=== PATIENT | male | born 1945 | race Caucasian/White ===

== ENCOUNTER 2025-01-24 09:00 | Day surgery (SDC) | payer OTHER ==
[2025-01-23 10:55] LABS: BASO % 0.3 % (0.1-1.2); EOS # 0.01 (0.04-0.54); EOS % 0.1 % (0.7-7.0); LYMPH # 2.31 (1.18-3.74); LYMPH % 32.0 % (19.3-53.1); MEAN PLATELET VOLUME 10.50 fl (9.4-12.4); MONO # 0.46 (0.24-0.82); MONO % 6.4 % (4.7-12.5); NEUT # 4.40 (1.56-6.13); NEUT % 60.9 % (34.0-71.1); RED CELL DISTRIBUTION WIDTH 12.8 % (11.6-14.4)
[2025-01-23 11:06] VITALS: BP 150/100
[2025-01-23 11:07] VITALS: BP 150/95
[2025-01-23 11:21] LABS: INR 1.04
[2025-01-23 11:26] LABS: URINE APPEARANCE Clear; URINE BILIRRUBIN Negative (NEGATIVE); URINE BLOOD Negative; URINE COLOR Yellow; URINE KETONE Trace (NEGATIVE); URINE LEUKOCYTE Negative; URINE NITRATE Negative; URINE UROBILINOGEN 1.0 E.U./dl
[2025-01-23 11:29] LABS: URINE BACTERIA 9.5 uL (0.0-1933); URINE EPITHELIAL CELLS 4.6 uL (0.0-38.8); URINE RBC 6.5 uL (0.0-20.8); URINE WBC 2.7 uL (0.0-23.2)
[2025-01-23 11:29] LABS: ALT/SGPT 23.0 U/L (12-78); AST/SGOT 16.0 U/L (15-37); BILIRUBIN TOTAL 0.61 mg/dL (0.3-1.2); BUN CREA RATIO 19.0 (7.0-25.0); CREATININE SERUM 0.99 mg/dL (0.70-1.30); GFR 72.37; GLOBULINA 4.1 G/DL (2.4-3.5); OSMOLALITY SERUM 291.0 MOSM/KG (275-295)
[2025-01-23 11:30] LABS: COL EPI 96 SECONDS (82-175); GLUCOSE FASTING 236.0 mg/dL (65-100)
[2025-01-23 11:44] LABS: URINE CAST 0.73 uL (0.0-1.40); URINE GLUCOSE 100 MG/DL (NEGATIVE); URINE PROTEIN 100 (NEGATIVE)
[2025-01-23 11:45] LABS: URINE CRYSTALS MANY /HPF
[~2025-01-24] VITALS: Ht 165.1 cm; Wt 68.0 kg
[~2025-01-24 09:00] MED LIST: AMLODIPINE-OLM1 EACH PO; ENALAPRIL MALEA10 MG PO
[2025-01-24] MEDS ORDERED: CEFAZOLIN SODIUM 1,000 MG VIAL ONE (09:25)
[2025-01-24] MEDS ORDERED: BUPIVACAINE HCL/MPF 0.5% 30ML VIAL ONE (10:36)
== END 2025-01-24 13:30 | disposition home or self-care (01) ==
LOC: CIR.AMB 09:00
PROVIDERS: ATTEND Orthopaedic Surgery
DX: S52.021A Displaced fracture of olecranon process without intraarticular extension of right ulna, initial encounter for closed fracture (principal); M70.21 Olecranon bursitis, right elbow
CPT/HCPCS: 24685; L8699

== ENCOUNTER 2025-01-24 22:04 | Inpatient (IN) | payer OTHER ==
[~2025-01-24] VITALS: Ht 162.6 cm; Wt 65.8 kg
--- NOTE | 2025-01-24 22:35 | NUR ---
PTE ALERTA,ESTABLE Y ORIENTADO.VALERIANO REFIERE QUE SUFRIO ASHLEY CAIDA HOY.VALERIANO TAMBIEN LO OPERARON HOY DEL CODO DERECHO POR EL
[2025-01-24] MEDS ORDERED: KETOROLAC TROMETHAMINE 60 MG VIAL IM STA (23:19)
[2025-01-24] MEDS ORDERED: KETOROLAC TROMETHAMINE 60 MG VIAL IM ONE (23:26)
--- NOTE | 2025-01-24 23:34 | NUR ---
PTE EVALUADO POR EL TIEN CHERRYIEN ORDENA TRATAMIENTO LA CUAL SE EJECUTA POR MS.AYALA MUHAMMAD . SE AMNTIENE BAJO OBSERVACION.
[2025-01-25] MEDS ORDERED: DIPHENHYDRAMINE HCL 50 MG/ML VIAL 1ML ONE (04:06)
[2025-01-25] MEDS ORDERED: DIPHENHYDRAMINE HCL 50 MG/ML VIAL 1ML IM STA (04:07)
[2025-01-25] MEDS ORDERED: 0.9 % SODIUM CHLORIDE 1,000 ML IV ONE (04:45)
[2025-01-25] MEDS ORDERED: LORazepam 2 MG/ML VIAL ONE (05:44)
[2025-01-25] MEDS ORDERED: LORazepam 2 MG/ML VIAL IV SCH (06:00)
--- NOTE | 2025-01-25 06:05 | NUR ---
POR ORDEN DEL DR, TIEN SE LE ADMINISTR ATIVAN 2MG IV POR DESORIENTACION Y SE OBSERVA AGITADO LA CUAL NO SE FILI REALIZAR ESTUDIO DE RX Y NO SE FILI REALIZAR ORDEN MEDICAS. SE LE OPBSERVA POR CAMBIOS.
--- NOTE | 2025-01-25 06:07 | NUR ---
SE LE INSERTA FOLIE CATHETE POR ORDEN MEDICA POR MS.AYALA MUHAMMAD.
[2025-01-25 06:21] LABS: BASO % 0.1 % (0.1-1.2); EOS # 0.01 (0.04-0.54); EOS % 0.1 % (0.7-7.0); LYMPH # 4.00 (1.18-3.74); LYMPH % 35.8 % (19.3-53.1); MEAN PLATELET VOLUME 10.40 fl (9.4-12.4); MONO # 0.78 (0.24-0.82); MONO % 7.0 % (4.7-12.5); NEUT # 6.33 (1.56-6.13); NEUT % 56.7 % (34.0-71.1); RED CELL DISTRIBUTION WIDTH 12.5 % (11.6-14.4)
[2025-01-25 06:36] LABS: INR 1.09
[2025-01-25 06:47] LABS: BUN CREA RATIO 15.0 (7.0-25.0); CREATININE SERUM 1.09 mg/dL (0.70-1.30); GFR 64.76; OSMOLALITY SERUM 290.0 MOSM/KG (275-295)
[2025-01-25 06:48] LABS: GLUCOSE FASTING 277.0 mg/dL (65-100)
[2025-01-25] MEDS ORDERED: CEFAZOLIN SODIUM 1,000 MG VIAL IV ONE (12:00)
[2025-01-25] MEDS ORDERED: INSULIN LISPRO 1,000 UNIT/10 ML UNITS SUBCUTANEO PRN (12:00)
[2025-01-25] MEDS ORDERED: PROMETHAZINE HCL 50 MG/ML AMPUL IM PRN (12:00)
[2025-01-25] MEDS ORDERED: DEXTROSE 50 % IN WATER 0.5 G/ML DISP.SYRIN IV PRN (12:00)
[2025-01-25] MEDS ORDERED: 0.9 % SODIUM CHLORIDE 1,000 ML IV SCH (12:00)
[2025-01-25] MEDS ORDERED: MORPHINE SULFATE 2 MG/ML SYRINGE IV PRN (12:15)
[2025-01-25] MEDS ORDERED: ENALAPRILAT DIHYDRATE 1.25 MG/ML VIAL IV PRN (12:15)
[2025-01-25] MEDS ORDERED: ENOXAPARIN SODIUM 40 MG/0.4 ML SYRINGE SUBCUTANEO ONE ×2 (12:15→12:30)
[2025-01-25] MEDS ORDERED: LORazepam 2 MG/ML VIAL IV PRN (12:15)
[2025-01-25] MEDS ORDERED: CEFAZOLIN SODIUM 1,000 MG VIAL ONE (12:30)
[2025-01-25 14:25] LABS: URINE APPEARANCE Clear; URINE BILIRRUBIN Negative (NEGATIVE); URINE BLOOD Small; URINE COLOR Yellow; URINE KETONE Trace (NEGATIVE); URINE LEUKOCYTE Negative; URINE NITRATE Negative; URINE PROTEIN 30 (NEGATIVE); URINE UROBILINOGEN 1.0 E.U./dl
[2025-01-25 14:29] LABS: URINE BACTERIA 11.9 uL (0.0-1933); URINE EPITHELIAL CELLS 6.6 uL (0.0-38.8); URINE RBC 130.3 uL (0.0-20.8); URINE WBC 21.6 uL (0.0-23.2)
[2025-01-25 15:04] LABS: URINE CAST 1.31 uL (0.0-1.40); URINE GLUCOSE 250 MG/DL (NEGATIVE)
[2025-01-25 16:17] VITALS: BP 168/70; O2SAT 100
[2025-01-25 17:56] VITALS: BP 173/89; O2SAT 96
[2025-01-26 02:00] VITALS: BP 151/77; O2SAT 98
[2025-01-26 09:06] VITALS: BP 143/82; O2SAT 98
[2025-01-26 16:00] VITALS: BP 136/76; O2SAT 98
[2025-01-27 00:58] VITALS: BP 141/81; O2SAT 98
[2025-01-27 08:29] LABS: BASO % 0.1 % (0.1-1.2); EOS # 0.01 (0.04-0.54); EOS % 0.1 % (0.7-7.0); LYMPH # 2.38 (1.18-3.74); LYMPH % 24.9 % (19.3-53.1); MEAN PLATELET VOLUME 11.10 fl (9.4-12.4); MONO # 1.06 (0.24-0.82); MONO % 11.1 % (4.7-12.5); NEUT # 6.07 (1.56-6.13); NEUT % 63.6 % (34.0-71.1); RED CELL DISTRIBUTION WIDTH 12.8 % (11.6-14.4)
[2025-01-27 09:09] VITALS: BP 163/83; O2SAT 99
[2025-01-27] MEDS ORDERED: CEFAZOLIN SODIUM 1,000 MG VIAL IV SCH (17:45)
[2025-01-27] MEDS ORDERED: TRANEXAMIC ACID 100MG/1ML (1000MG) AMPUL IV ONE (17:45)
[2025-01-27] MEDS ORDERED: PROMETHAZINE HCL 50 MG/ML AMPUL IM PRN (18:00)
[2025-01-27] MEDS ORDERED: SODIUM CHLORIDE 0.45 % 1,000 ML IV SCH (18:00)
[2025-01-27] MEDS ORDERED: ONDANSETRON 4 MG TAB.RAPDIS PO PRN (18:00)
[2025-01-27] MEDS ORDERED: ONDANSETRON HCL 2 MG/ML VIAL IV PRN (18:00)
[2025-01-27] MEDS ORDERED: TRAMADOL HCL 50 MG TABLET PO PRN (18:00)
[2025-01-27] MEDS ORDERED: SUGAMMADEX SODIUM 200 MG/2 ML VIAL IV ONE (18:45)
[2025-01-27] MEDS ORDERED: CEFTRIAXONE SODIUM 2,000 MG in 0.9 % SODIUM CHLORIDE 100 ML IV NR (19:00)
[2025-01-27] MEDS ORDERED: ACETAMINOPHEN 325 MG TABLET PO SCH (21:00)
[2025-01-28 00:36] VITALS: BP 128/70; O2SAT 99
[2025-01-28 08:00] VITALS: BP 186/110; O2SAT 98
[2025-01-28] MEDS ORDERED: RIVAROXABAN 10 MG TAB PO SCH (09:00)
[2025-01-28] MEDS ORDERED: PANTOPRAZOLE SODIUM 40 MG TABLET.DR PO SCH (09:00)
[2025-01-28 10:45] LABS: BASO % 0.1 % (0.1-1.2); EOS # 0.00 (0.04-0.54); EOS % 0.0 % (0.7-7.0); LYMPH # 1.28 (1.18-3.74); LYMPH % 14.2 % (19.3-53.1); MEAN PLATELET VOLUME 10.90 fl (9.4-12.4); MONO # 0.75 (0.24-0.82); MONO % 8.3 % (4.7-12.5); NEUT # 6.93 (1.56-6.13); NEUT % 77.2 % (34.0-71.1); RED CELL DISTRIBUTION WIDTH 12.6 % (11.6-14.4)
[2025-01-28 16:00] VITALS: BP 160/80; O2SAT 98
[2025-01-28] MEDS ORDERED: CEFTRIAXONE SODIUM 2,000 MG in 0.9 % SODIUM CHLORIDE 100 ML IV SCH (17:00)
[2025-01-29 00:30] VITALS: BP 172/67; O2SAT 99
[2025-01-29 07:30] VITALS: BP 201/76; O2SAT 99
[2025-01-29 08:11] LABS: BASO % 0.1 % (0.1-1.2); EOS # 0.02 (0.04-0.54); EOS % 0.3 % (0.7-7.0); LYMPH # 1.82 (1.18-3.74); LYMPH % 27.2 % (19.3-53.1); MEAN PLATELET VOLUME 10.30 fl (9.4-12.4); MONO # 0.74 (0.24-0.82); MONO % 11.0 % (4.7-12.5); NEUT # 4.09 (1.56-6.13); NEUT % 61.1 % (34.0-71.1); RED CELL DISTRIBUTION WIDTH 12.5 % (11.6-14.4)
[2025-01-29 08:30] VITALS: BP 160/80; O2SAT 98
[2025-01-29] MEDS ORDERED: SENNA/DOCUSATE SODIUM 1 TAB TABLET PO SCH (09:00)
[2025-01-29 16:00] VITALS: BP 146/77; O2SAT 98
[2025-01-30] VITALS: BP 142/71; O2SAT 99
[2025-01-30] MEDS ORDERED: LOSARTAN POTASSIUM 25 MG TABLET PO SCH (09:00)
[2025-01-30 09:20] VITALS: BP 190/74; O2SAT 97
[2025-01-30 22:39] VITALS: BP 152/79; O2SAT 98
[2025-01-31 00:30] VITALS: BP 117/79; O2SAT 99
[2025-01-31 08:21] VITALS: BP 166/89; O2SAT 98
== END 2025-01-31 13:23 | disposition home or self-care (01) | DRG 482 ==
LOC: ER 22:04 → SURG 01-25 12:14
PROVIDERS: General Practice; Orthopaedic Surgery; ADMIT Internal Medicine; ATTEND Internal Medicine
PROC: 0MBV0ZZ Excision of Right Lower Extremity Bursa and Ligament, Open Approach (ICD-10-PCS; 2025-01-27)
PROC: 0QS606Z Reposition Right Upper Femur with Intramedullary Internal Fixation Device, Open Approach (ICD-10-PCS; principal; 2025-01-27 14:00)
DX: S72.141A Displaced intertrochanteric fracture of right femur, initial encounter for closed fracture (principal); M70.61 Trochanteric bursitis, right hip; W18.00XA Striking against unspecified object with subsequent fall, initial encounter; Y92.019 Unspecified place in single-family (private) house as the place of occurrence of the external cause; G30.9 Alzheimer's disease, unspecified; I10 Essential (primary) hypertension